=== PATIENT | female | born 1970 | race Caucasian/White ===

== ENCOUNTER 2017-03-22 22:57 | Emergency (ER) | payer OTHER ==
--- NOTE | 2017-03-22 23:55 | ED NURSING NOTES ---
Clinical Report - Nurses [facility] [address] [place] [address] 03/22/2017 23:01 Patient: RENETTA SCANLON TRIAGE Triage time 23:15. Chief Complaint: FALL while walking, landed on their arms with hands extended (slipped on cardboard and fell onto doorway and floor). 23:25 03/22/17. Alert. NELA COMA SCORE: [place] Coma Scale: 15- eyes open spontaneously (4); best verbal response- oriented x 4 (5); best motor response- obeys commands (6). --23:25 Angy Aceves R.N. 23:16 03/22/17. BP: 132/79. HR: 88. RR: 18. O2 saturation: 99% on room air. Temp: 97.9 F. Pain level now: 06/21. --23:25 Angy Aceves R.N. Weight: 54.4 kg stated. Height/Length: 66 inches Estimated. BMI: 19.4. --23:23 Angy Aceves R.N. Medications Wellbutrin Oral. --23:19 Angy Aceves R.N. Allergies Sulfa Antibiotics. --23:19 Angy Aceves R.N. Codeine. --23:19 Angy Aceves R.N. History Historian: patient. Accompanied by friend. Primary physician (Dr Baig). Location of injuries: right shoulder. This occurred today. ( Patient states she "twisted her arm and heard a pop" upon falling.). Limited ROM present. Treatment BUSINESS PRACTICES SUPERVISOR: Ice. PAST MEDICAL HX: Tetanus status: up-to-date. Immunizations: up-to-date. Denies current . SOCIAL HX: Heavy tobacco smoker- less than 1 pack per day. No alcohol use or drug use. FALL RISK ASSESSMENT: Fall risk assessment completed. No fall risk identified. NUTRITIONAL RISK ASSESSMENT: The nutritional risk assessment revealed no deficiencies. FUNCTIONAL ASSESSMENT: Functional assessment: no impairments noted. LEARNING NEEDS ASSESSMENT: The learning needs assessment revealed no barriers. SKIN INTEGRITY ASSESSMENT: Skin integrity risk assessment completed. No skin integrity risk identified. --23:25 Angy Aceves R.N. PROBLEMS: Depression. Multiple Sclerosis. --23:20 Angy Aceves R.N. ADDITIONAL SURGERIES: Tubal Ligation. --23:20 Angy Aceves R.N. PHYSICAL ASSESSMENT Ambulatory to room. GENERAL / NEURO / PSYCH: Alert. Oriented X 4. Appears in pain. CVS: Pulses within normal limits. Capillary refill less than 2 seconds. EXTREMITIES: Limited ROM present in the right shoulder. Right shoulder. Limited ROM due to pain. SKIN: Skin intact. Skin is warm and dry. --23:26 Angy Aceves R.N. NURSING PROGRESS NOTES 23:26 03/22/17. Patient gowned. Two patient identifiers checked. Call light placed in reach. Side rails up x 1. Bed placed in lowest position. Brakes of bed on. --23:26 Angy Aceves R.N. 23:27 03/22/2017 Percocet (Oxycodone-Acetaminophen) PO 5/325 mg Tablets 1 tab given. Allergies verified, confirmed 5 rights and sedative warning given to the patient and patient's salt machine operator. --23:32 Angy Aceves R.N. <<STRICKEN ENTRY-- ( Ice applied. Patient transported to x ray with tech (ambulatory).). --23:35 Angy Aceves R.N. --END STRIKE>> Correction --23:39 Angy Aceves R.N. 23:35. ( Ice applied. Patient transported to x ray with tech via wheelchair.). --23:40 Angy Aceves R.N. ( patient returned to room from xray with tech via wheelchair.). --23:40 Angy Aceves R.N. DISPOSITION / DISCHARGE 00:03. No learning barriers present. Discharge instructions provided and reviewed with the patient. Reviewed warnings. Reviewed medication(s). Treatments reviewed. Patient verbalized understanding. Written instructions provided in Turkmen. The patient was discharged home and accompanied by salt machine operator. She left the Emergency Department ambulatory and via private vehicle. Clinical Lab Specialist driving. --00:07 Angy Aceves R.N. 23:16 03/22/17. BP: 132/79. HR: 88. RR: 18. O2 saturation: 99% on room air. Temp: 97.9 F. Pain level now: 06/21. --00:07 Angy Aceves R.N. Locked/Released at 03/23/2017 0:11 by Angy Aceves R.N.
--- NOTE | 2017-03-22 23:55 | ED ORDER SUMMARY ---
..... Patient: RENETTA SCANLON OrderSheet [facility] VisitID: [id number] [address] [place] [address] 47y, F Registration Date/Time: 03/22/2017 ORDER SHEET Weight: 54.4 kg (stated) Allergies: Sulfa Antibiotics, Codeine GENERAL ORDERS: Shoulder 2V or more Right Urgent (23:26 03/22/2017 Latisha Nuñez) (Ack 23:30 Lauren ER Route Sales Delivery Drivers Supervisor) (23:39 Nina) Ice (23:27 03/22/2017 Latisha Nuñez) (23:32 Rigo R.N.) Sling - arm (right) (23:53 03/22/2017 Latisha Nuñez) (23:54 Rigo R.N.) MEDICATION ORDERS: Percocet PO 5/325 mg (HIGH ALERT MEDICATION, NOW) (23:26 03/22/2017 Latisha Nuñez) (23:32 Rigo R.N.) IV FLUIDS: ORDER SHEET NOTES: [Electronically signed by Angy Aceves R.N. (00:11 03/23/2017)] [Electronically signed by Azael Rey Dr. (16:19 03/29/2017)] [Electronically locked/signed by Angy Aceves R.N. (00:03/23/2017)]
--- NOTE | 2017-03-22 23:55 | ED ORDER SUMMARY ---
..... Patient: RENETTA SCANLON OrderSheet [facility] VisitID: [id number] [address] [place] [address] 47y, F Registration Date/Time: 03/22/2017 ORDER SHEET Weight: 54.4 kg (stated) Allergies: Sulfa Antibiotics, Codeine GENERAL ORDERS: Shoulder 2V or more Right Urgent (23:26 03/22/2017 Latisha Nuñez) (Ack 23:30 Lauren ER Propellant Assembler) (23:39 Nina) Ice (23:27 03/22/2017 Latisha Nuñez) (23:32 Rigo R.N.) Sling - arm (right) (23:53 03/22/2017 Latisha Nuñez) (23:54 Rigo R.N.) MEDICATION ORDERS: Percocet PO 5/325 mg (HIGH ALERT MEDICATION, NOW) (23:26 03/22/2017 Latisha Nuñez) (23:32 Rigo R.N.) IV FLUIDS: ORDER SHEET NOTES: [Electronically signed by Angy Aceves R.N. (00:11 03/23/2017)] [Electronically signed by Azael Rey Dr. (16:19 03/29/2017)] [Electronically locked/signed by Angy Aceves R.N. (00:03/23/2017)]
--- NOTE | 2017-03-22 23:55 | ED NURSING NOTES ---
Clinical Report - Nurses [facility] [address] [place] [address] 03/22/2017 23:01 Patient: RENETTA SCANLON TRIAGE Triage time 23:15. Chief Complaint: FALL while walking, landed on their arms with hands extended (slipped on cardboard and fell onto doorway and floor). 23:25 03/22/17. Alert. NELA COMA SCORE: [place] Coma Scale: 15- eyes open spontaneously (4); best verbal response- oriented x 4 (5); best motor response- obeys commands (6). --23:25 Angy Aceves R.N. 23:16 03/22/17. BP: 132/79. HR: 88. RR: 18. O2 saturation: 99% on room air. Temp: 97.9 F. Pain level now: 06/21. --23:25 Angy Aceves R.N. Weight: 54.4 kg stated. Height/Length: 66 inches Estimated. BMI: 19.4. --23:23 Angy Aceves R.N. Medications Wellbutrin Oral. --23:19 Angy Aceves R.N. Allergies Sulfa Antibiotics. --23:19 Angy Aceves R.N. Codeine. --23:19 Angy Aceves R.N. History Historian: patient. Accompanied by friend. Primary physician (Dr Baig). Location of injuries: right shoulder. This occurred today. ( Patient states she "twisted her arm and heard a pop" upon falling.). Limited ROM present. Treatment BIOMEDICAL EQUIPMENT TECH: Ice. PAST MEDICAL HX: Tetanus status: up-to-date. Immunizations: up-to-date. Denies current . SOCIAL HX: Heavy tobacco smoker- less than 1 pack per day. No alcohol use or drug use. FALL RISK ASSESSMENT: Fall risk assessment completed. No fall risk identified. NUTRITIONAL RISK ASSESSMENT: The nutritional risk assessment revealed no deficiencies. FUNCTIONAL ASSESSMENT: Functional assessment: no impairments noted. LEARNING NEEDS ASSESSMENT: The learning needs assessment revealed no barriers. SKIN INTEGRITY ASSESSMENT: Skin integrity risk assessment completed. No skin integrity risk identified. --23:25 Angy Aceves R.N. PROBLEMS: Depression. Multiple Sclerosis. --23:20 Angy Aceves R.N. ADDITIONAL SURGERIES: Tubal Ligation. --23:20 Angy Aceves R.N. PHYSICAL ASSESSMENT Ambulatory to room. GENERAL / NEURO / PSYCH: Alert. Oriented X 4. Appears in pain. CVS: Pulses within normal limits. Capillary refill less than 2 seconds. EXTREMITIES: Limited ROM present in the right shoulder. Right shoulder. Limited ROM due to pain. SKIN: Skin intact. Skin is warm and dry. --23:26 Angy Aceves R.N. NURSING PROGRESS NOTES 23:26 03/22/17. Patient gowned. Two patient identifiers checked. Call light placed in reach. Side rails up x 1. Bed placed in lowest position. Brakes of bed on. --23:26 Angy Aceves R.N. 23:27 03/22/2017 Percocet (Oxycodone-Acetaminophen) PO 5/325 mg Tablets 1 tab given. Allergies verified, confirmed 5 rights and sedative warning given to the patient and patient's merchandise for resale purchasing agent. --23:32 Angy Aceves R.N. <<STRICKEN ENTRY-- ( Ice applied. Patient transported to x ray with tech (ambulatory).). --23:35 Angy Aceves R.N. --END STRIKE>> Correction --23:39 Angy Aceves R.N. 23:35. ( Ice applied. Patient transported to x ray with tech via wheelchair.). --23:40 Angy Aceves R.N. ( patient returned to room from xray with tech via wheelchair.). --23:40 Angy Aceves R.N. DISPOSITION / DISCHARGE 00:03. No learning barriers present. Discharge instructions provided and reviewed with the patient. Reviewed warnings. Reviewed medication(s). Treatments reviewed. Patient verbalized understanding. Written instructions provided in Malay. The patient was discharged home and accompanied by merchandise for resale purchasing agent. She left the Emergency Department ambulatory and via private vehicle. Conference And Event Organiser driving. --00:07 Angy Aceves R.N. 23:16 03/22/17. BP: 132/79. HR: 88. RR: 18. O2 saturation: 99% on room air. Temp: 97.9 F. Pain level now: 06/21. --00:07 Angy Aceves R.N. Locked/Released at 03/23/2017 0:11 by Angy Aceves R.N.
--- NOTE | 2017-03-22 23:55 | ED CLINICAL REPORT ---
Clinical Report - Physicians/Mid Levels [facility] [address] [place] [address] 03/22/2017 23:01 Patient: RENETTA SCANLON Time Seen: 2325; initial patient contact. Arrived- By private vehicle. Historian- patient. HISTORY OF PRESENT ILLNESS Chief Complaint: Injury to right shoulder. The injury happened today. Fell. ( slipped on cardboard fell backwards and out onto outstretched arm. grabbed doorway on the way down. no other injuries.). Patient is experiencing moderate pain. Patient denies injury to the head or neck. No other injury. REVIEW OF SYSTEMS No swelling, tingling, weakness, suspected foreign body or skin laceration. All systems otherwise negative, except as recorded above. PAST HISTORY See nurses notes. Tetanus immunization status is up-to-date. SOCIAL HISTORY Smoker- current status unknown. No alcohol use or drug use. Is a local resident. PHYSICAL EXAM Appearance: Alert. Oriented X3. Patient in mild distress. Head: Head atraumatic. Eyes: Pupils equal, round and reactive to light. Eyes normal inspection. ENT: Ears normal. Nose normal. Pharynx normal. Neck: Normal inspection. Neck supple. C-spine non-tender. CVS: Normal heart rate and rhythm. Heart sounds normal. Pulses normal. Respiratory: No respiratory distress. Breath sounds normal. Chest nontender. No rales, rhonchi or wheezes. Abdomen: No visible injury. Soft and nontender. Extremities: Normal external inspection. Decreased range of motion (shoulder) (secondary to pain.). No shoulder deformity. (No bony abnormalities. No crepitus. Overlying skin changes. Skin is intact. Mild tenderness to the anterior shoulder at the glenohumeral joint. No neck tenderness. No clavicular tenderness. Chest is atraumatic and nontender.). Extremities otherwise negative. Neuro, Vascular and Tendons: Sensation intact. Motor intact. Vascular status intact. Tendon function intact. Tendon visualized, uninjured. LABS, X-RAYS, AND EKG Rt Shoulder X-ray: (PROCEDURE: XR SHOULDER 2 OR MORE VW-RIGHT INDICATION: TRAUMA/INJURY TECHNIQUE: Three views. COMPARISON: None. FINDINGS: There are mild degenerative changes of the acromion and right acromioclavicular joint. Right glenohumeral joint is normal. There is a 7 mm calcification of the lateral rotator cuff. IMPRESSION: 1. Mild degenerative changes of the acromion and right acromioclavicular joint. 2. 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 The X-rays were independently viewed by me and interpreted by the radiologist. The X-rays were discussed with the radiologist (via pacs). PROGRESS AND PROCEDURES Course of Care: The patient is a 47 year old female presenting for evaluation of injury to the right shoulder. No signs of neurovascular compromise at this time. Patient is appropriate. No signs of infection. Had a discussion with possibilities at this time. Patient is agreeable to the treatment and plan. Pain medication has been offered. The patient's workup was remarkable for the findings above. On repeat examination patient continues to be neurovascularly intact. Pain is improved while here. Discussed with patient her workup here in emergency department including diagnosis, home care, follow-up, and return precautions. All questions have been answered. The patient expressed understanding of these instructions and was agreeable to them. Disposition: Discharged. Condition: good. CLINICAL IMPRESSION 03/22/2017 23:16 BP: 132/79. HR: 88. RR: 18. O2 saturation: 99%. Temp: 97.9 F. Pain level now: 10/10. Blood pressure normal. Oxygen saturation normal. Sprain of the right shoulder (acute). INSTRUCTIONS Warnings: GENERAL WARNINGS: Return or contact your physician immediately if your condition worsens or changes unexpectedly, if not improving as expected, or if other problems arise. Specifically return if pain, vomiting, bleeding, breathing difficulty or fever. Your Current Medications: CONTINUE TAKING THE FOLLOWING MEDICATIONS: Wellbutrin Oral. Prescription Medications: Percocet 5 mg/325 mg: take 1 tablet orally every 6 hours as needed for pain. Dispense twelve (12). No refill. Substitution is permissible. OTC Medications: Motrin (available over the counter): take according to label instructions. Follow-up: Return to the emergency department as needed. Follow up with your doctor in one week. Reason for referral: recheck today's concerns. Summary of care provided to patient via paper. Screening today revealed the patient's blood pressure to be in the normal range. The patient should follow up with a primary care provider for blood pressure management. Understanding of the discharge instructions verbalized by patient. (Electronically signed by Azael Rey Dr. 03/29/2017 16:19)
--- NOTE | 2017-03-23 00:57 | DIAGNOSTIC IMAGING REPORT ---
PROCEDURE: XR SHOULDER 2 OR MORE VW-RIGHT INDICATION: TRAUMA/INJURY TECHNIQUE: Three views. COMPARISON: None. FINDINGS: There are mild degenerative changes of the acromion and right acromioclavicular joint. Right glenohumeral joint is normal. There is a 7 mm calcification of the lateral rotator cuff. IMPRESSION: 1. Mild degenerative changes of the acromion and right acromioclavicular joint. 2. Calcific tendinosis of the rotator cuff (acute versus chronic).
--- NOTE | 2017-03-29 16:19 | ED MED RECONCILIATION SUMMARY ---
Patient: RENETTA SCANLON Medication Reconciliation Report [facility] VisitID: [id number] [address] [place] [address] 47y, F Registration Date/Time: 03/22/2017 Weight: 54.4 kg Height/Length: 66 in. BMI: 19.4 ALLERGIES: Codeine, Sulfa Antibiotics The patient's Home Medications are listed below: CONTINUE TAKING THE FOLLOWING MEDICATIONS: Wellbutrin Oral The source(s) of the original Home Medication information: Not obtained. The following Medications were given to the patient in the Emergency Department: Percocet [PO] PO 1 tab, administered: 03/22/2017 11:27:00 PM The following Medications were prescribed to the patient: Motrin (available over the counter): take according to label instructions. -- Azael Rey Dr. Percocet 5 mg/325 mg: take 1 tablet orally every 6 hours as needed for pain. Dispense twelve (12). No refill. Substitution is permissible. -- Azael Rey Dr.
--- NOTE | 2017-03-29 16:19 | ED MAR SUMMARY ---
..... Medication Administration Record [facility] [address] [place] [address] Patient: RENETTA SCANLON Visit ID: [id number] 47y, F Weight: 54.4 kg Height/Length: 66 in BMI: 19.4 ALLERGIES: Codeine, Sulfa Antibiotics Given 23:27 03/22/2017 Angy Aceves R.N. Medication Administered: PERCOCET [PO] (OXYCODONE-ACETAMINOPHEN), Dose: 1 tab 5/325 mg Tablets PO. Medication Ordered: Percocet PO 5/325 mg (HIGH ALERT MEDICATION, NOW).
--- NOTE | 2017-03-29 16:19 | ED MED RECONCILIATION SUMMARY ---
Patient: RENETTA SCANLON Medication Reconciliation Report [facility] VisitID: [id number] [address] [place] [address] 47y, F Registration Date/Time: 03/22/2017 Weight: 54.4 kg Height/Length: 66 in. BMI: 19.4 ALLERGIES: Codeine, Sulfa Antibiotics The patient's Home Medications are listed below: CONTINUE TAKING THE FOLLOWING MEDICATIONS: Wellbutrin Oral The source(s) of the original Home Medication information: Not obtained. The following Medications were given to the patient in the Emergency Department: Percocet [PO] PO 1 tab, administered: 03/22/2017 11:27:00 PM The following Medications were prescribed to the patient: Motrin (available over the counter): take according to label instructions. -- Azael Rey Dr. Percocet 5 mg/325 mg: take 1 tablet orally every 6 hours as needed for pain. Dispense twelve (12). No refill. Substitution is permissible. -- Azael Rey Dr.
--- NOTE | 2017-03-29 16:19 | ED MAR SUMMARY ---
..... Medication Administration Record [facility] [address] [place] [address] Patient: RENETTA SCANLON Visit ID: [id number] 47y, F Weight: 54.4 kg Height/Length: 66 in BMI: 19.4 ALLERGIES: Codeine, Sulfa Antibiotics Given 23:27 03/22/2017 Angy Aceves R.N. Medication Administered: PERCOCET [PO] (OXYCODONE-ACETAMINOPHEN), Dose: 1 tab 5/325 mg Tablets PO. Medication Ordered: Percocet PO 5/325 mg (HIGH ALERT MEDICATION, NOW).
--- NOTE | 2017-03-29 16:19 | ED DISCHARGE INSTRUCTIONS ---
Patient: RENETTA SCANLON General Instructions [facility] VisitID: [id number] [place] [address] 47y, F Registration Date/Time: 03/22/2017 03/22/2017 23:16 BP: 132/79. HR: 88. RR: 18. O2 saturation: 99%. Temp: 97.9 F. Pain level now: 06/21. Blood pressure normal. Oxygen saturation normal. Sprain of the right shoulder (acute). INSTRUCTIONS Warnings: GENERAL WARNINGS: Return or contact your physician immediately if your condition worsens or changes unexpectedly, if not improving as expected, or if other problems arise. Specifically return if pain, vomiting, bleeding, breathing difficulty or fever. Your Current Medications: CONTINUE TAKING THE FOLLOWING MEDICATIONS: Wellbutrin Oral. Prescription Medications: Percocet 5 mg/325 mg: take 1 tablet orally every 6 hours as needed for pain. Dispense twelve (12). No refill. Substitution is permissible. OTC Medications: Motrin (available over the counter): take according to label instructions. Follow-up: Return to the emergency department as needed. Follow up with your doctor in one week. Reason for referral: recheck today's concerns. Summary of care provided to patient via paper. Screening today revealed the patient's blood pressure to be in the normal range. The patient should follow up with a primary care provider for blood pressure management. Understanding of the discharge instructions verbalized by patient. ADDITIONAL INFORMATION Shoulder Sprain A sprain is a stretching or tearing of the ligaments that hold a joint together. A sprain may take up to six weeks to fully heal, depending on how severe it is. Moderate to severe shoulder sprains are treated with a sling or shoulder immobilizer. Minor sprains can be treated without any special support. Home care The following guidelines will help you care for your injury at home: If a sling was provided, leave it in place for the time advised by your doctor. If you are unsure how long to wear it, ask for advice. If the sling becomes loose, adjust it so that your forearm is level with the ground and the shoulder feels well supported. Apply an ice pack (ice cubes in a plastic bag, wrapped in a thin towel) over the injured area for 20 minutes every 12 hours the first day. Continue with ice packs 34 times a day for the next two days, then as needed for the relief of pain and swelling. You may use acetaminophen or ibuprofen to control pain, unless another pain medicine was prescribed.If you have chronic liver or kidney disease or ever had a stomach ulcer or GI bleeding, talk with your doctor before using these medicines. Shoulder joints become stiff if left in a sling for too long. Range of motion exercises should usually be started within the first ten days after injury. Consult your doctor on what type of exercises to do and how soon to start. Follow-up care Follow up with your doctor as directed. Any X-rays you had today dont show any broken bones, breaks, or fractures. Sometimes fractures dont show up on the first X-ray. Bruises and sprains can sometimes hurt as much as a fracture. These injuries can take time to heal completely. If your symptoms dont improve or they get worse, talk with your doctor. You may need a repeat X-ray. When to seek medical care Get prompt medical attention if any of the following occur: Increasing shoulder pain or arm swelling Fingers become cold, blue, numb, or tingly Large amount of bruising of the shoulder or upper arm Oxycodone Hydrochloride, Acetaminophen Oral tablet What is this medicine? ACETAMINOPHEN; OXYCODONE (a set a ZHANE petra fen; ox i KOE done) is a pain reliever. It is used to treat mild to moderate pain. How should I use this medicine? Take this medicine by mouth with a full glass of water. Follow the directions on the prescription label. Take your medicine at regular intervals. Do not take your medicine more often than directed. Talk to your landcare facilitator regarding the use of this medicine in children. Special care may be needed. Patients over 65 years old may have a stronger reaction and need a smaller dose. What side effects may I notice from receiving this medicine? Side effects that you should report to your doctor or health plant care worker as soon as possible: allergic reactions like skin rash, itching or hives, swelling of the face, lips, or tongue breathing difficulties, wheezing confusion light headedness or fainting spells severe stomach pain yellowing of the skin or the whites of the eyes Side effects that usually do not require medical attention (report to your doctor or health plant care worker if they continue or are bothersome): dizziness drowsiness nausea vomiting What may interact with this medicine? alcohol antihistamines barbiturates like amobarbital, butalbital, butabarbital, methohexital, pentobarbital, phenobarbital, thiopental, and secobarbital benztropine drugs for bladder problems like solifenacin, trospium, oxybutynin, tolterodine, hyoscyamine, and methscopolamine drugs for breathing problems like ipratropium and tiotropium drugs for certain stomach or intestine problems like propantheline, homatropine methylbromide, glycopyrrolate, atropine, belladonna, and dicyclomine general anesthetics like etomidate, ketamine, nitrous oxide, propofol, desflurane, enflurane, halothane, isoflurane, and sevoflurane medicines for depression, anxiety, or psychotic disturbances medicines for sleep muscle relaxants naltrexone narcotic medicines (opiates) for pain phenothiazines like perphenazine, thioridazine, chlorpromazine, mesoridazine, fluphenazine, prochlorperazine, promazine, and trifluoperazine scopolamine tramadol trihexyphenidyl What if I miss a dose? If you miss a dose, take it as soon as you can. If it is almost time for your next dose, take only that dose. Do not take double or extra doses. Where should I keep my medicine? Keep out of the reach of children. This medicine can be abused. Keep your medicine in a safe place to protect it from theft. Do not share this medicine with anyone. Selling or giving away this medicine is dangerous and against the law. Store at room temperature between 20 and 25 degrees C (68 and 77 degrees F). Keep container tightly closed. Protect from light. This medicine may cause accidental overdose and if it is taken by other adults, children, or pets. Flush any unused medicine down the toilet to reduce the chance of harm. Do not use the medicine after the expiration date. What should I tell my health care provider before I take this medicine? They need to know if you have any of these conditions: brain tumor Crohn's disease, inflammatory bowel disease, or ulcerative colitis drink more than 3 alcohol containing drinks per day drug abuse or addiction head injury heart or circulation problems kidney disease or problems going to the bathroom liver disease lung disease, asthma, or breathing problems an unusual or allergic reaction to acetaminophen, oxycodone, other opioid analgesics, other medicines, foods, dyes, or preservatives or trying to get breast-feeding What should I watch for while using this medicine? Tell your doctor or health plant care worker if your pain does not go away, if it gets worse, or if you have new or a different type of pain. You may develop tolerance to the medicine. Tolerance means that you will need a higher dose of the medication for pain relief. Tolerance is normal and is expected if you take this medicine for a long time. Do not suddenly stop taking your medicine because you may develop a severe reaction. Your body becomes used to the medicine. This does NOT mean you are addicted. Addiction is a behavior related to getting and using a drug for a non-medical reason. If you have pain, you have a medical reason to take pain medicine. Your doctor will tell you how much medicine to take. If your doctor wants you to stop the medicine, the dose will be slowly lowered over time to avoid any side effects. You may get drowsy or dizzy. Do not drive, use machinery, or do anything that needs mental alertness until you know how this medicine affects you. Do not stand or sit up quickly, especially if you are an older patient. This reduces the risk of dizzy or fainting spells. Alcohol may interfere with the effect of this medicine. Avoid alcoholic drinks. There are different types of narcotic medicines (opiates) for pain. If you take more than one type at the same time, you may have more side effects. Give your health care provider a list of all medicines you use. Your doctor will tell you how much medicine to take. Do not take more medicine than directed. Call emergency for help if you have problems breathing. The medicine will cause constipation. Try to have a bowel movement at least every 2 to 3 days. If you do not have a bowel movement for 3 days, call your doctor or health plant care worker. Do not take Tylenol (acetaminophen) or medicines that have acetaminophen with this medicine. Too much acetaminophen can be very dangerous. Many nonprescription medicines contain acetaminophen. Always read the labels carefully to avoid taking more acetaminophen. You have been given the following additional information: Shoulder Sprain Oxycodone Hydrochloride, Acetaminophen Oral tablet (Electronically signed by Azael Rey Dr. 03/29/2017 16:19)
== END 2017-03-23 00:03 | disposition home or self-care (01) ==
LOC: ED SRH 22:57
DX: S43.401A Unspecified sprain of right shoulder joint, initial encounter (principal); W01.0XXA Fall on same level from slipping, tripping and stumbling without subsequent striking against object, initial encounter; Y93.01 Activity, walking, marching and hiking; Y93.9 Activity, unspecified; Y92.9 Unspecified place or not applicable